=== PATIENT | male | born 1945 | race Caucasian/White ===

== ENCOUNTER 2018-01-06 09:28 | Emergency (ER) | payer SELFPAY ==
[2018-01-06 09:34] VITALS: BMI 23.5
[2018-01-06 10:36] LABS: BASO % 0.4 % (0-2.0); EOS % 1.9 % (0-4.5); HEMATOCRIT 44.4 % (35.4-49); HEMOGLOBIN 14.9 GM/dL (11.7-16.9); LYMPH % 22.3 % (8-40); MCHC 33.4 g/dl (32.0-35.9); MEAN CELL VOLUME 95.7 fl (80-96); MEAN PLT VOLUME 9.2 fl (7.5-11.1); MONO % 7.5 % (3.8-10.2); NEUT % 67.9 % (42.8-82.8); PLATELET COUNT 191 K/MM3 (134-434); RBC 4.64 M/mm3 (4.00-5.60); WHITE BLOOD COUNT 6.8 K/mm3 (4.0-10.0)
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
--- NOTE | 2018-01-06 10:51 | PDOC ---
History of Present Illness - General Chief Complaint: Rash Stated Complaint: RASH Time Seen by Provider: 01/06/18 09:36 History Source: Patient Exam Limitations: No Limitations - History of Present Illness Initial Comments: 01/06/18 11:09 72m with no known pmh (never seen a doctor in his life) presents with pruritic rash over right leg, chest, neck and back for the past 5 days. Also notes a increase in swelling in his left leg which has been swollen for the past 6 months or so. 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 He tried applying some lotion to the itchy area with no relief. Past History - Past Medical History Allergies/Adverse Reactions: Allergies Allergy/AdvReac Type Severity Reaction Status Date / Time No Known Allergies Allergy Verified 01/06/18 09:33 Home Medications: Ambulatory Orders NK [No Known Home Medication] 01/06/18 COPD: No - Suicide/Smoking/Psychosocial Hx Smoking History: Never smoked Review of Systems - Review of Systems Able to Perform ROS?: Yes Is the patient limited Wolof proficient: No Constitutional: No: Symptoms Reported HEENTM: No: Symptoms Reported Respiratory: No: Symptoms reported Cardiac (ROS): No: Symptoms Reported ABD/GI: No: Symptoms Reported : No: Symptoms Reported Musculoskeletal: No: Symptoms Reported Integumentary: Yes: See HPI Neurological: No: Symptoms reported All Other Systems: Reviewed and Negative *Physical Exam - Vital Signs Last Vital Signs Temp Pulse Resp BP Pulse Ox 98 F 66 18 181/74 H 97 01/06/18 09:30 01/06/18 09:30 01/06/18 09:30 01/06/18 09:30 01/06/18 09:30 - Physical Exam General Appearance: Yes: Nourished, Appropriately Dressed. No: Apparent Distress HEENT: positive: EOMI, CHRISSY, Normal ENT Inspection Respiratory/Chest: positive: Lungs Clear, Normal Breath Sounds, Respiratory Distress. negative: Chest Tender, Accessory Muscle Use Cardiovascular: positive: Regular Rhythm, Regular Rate, S1, S2 Gastrointestinal/Abdominal: positive: Normal Bowel Sounds, Flat, Soft. negative : Tender Extremity: positive: Swelling (left), Calf Tenderness (left) Integumentary: positive: Other (petechia-like rash over right leg, macular, erythmatous and prutitic rash over chest, back and neck. ) Neurologic: positive: Fully Oriented, Alert, Normal Mood/Affect, Normal Response ED Treatment Course - LABORATORY CBC & Chemistry Diagram: 01/06/18 10:30 01/06/18 10:30 - ADDITIONAL ORDERS Additional order review: 01/06/18 10:30 RBC 4.64 MCV 95.7 MCHC 33.4 RDW 13.0 MPV 9.2 Neutrophils % 67.9 Lymphocytes % 22.3 Monocytes % 7.5 Eosinophils % 1.9 Basophils % 0.4 - RADIOLOGY Radiology Studies Ordered: Category Date Time Status DUPLEX VASCUL US-1 LEG [US] Stat Ultrasound 01/06/18 10:02 Ordered - Medications Given in the ED: ED Medications Discontinued Medications Generic Name Dose Route Start Last Admin Trade Name Freq PRN Reason Stop Dose Admin Diphenhydramine HCl 25 mg 01/06/18 10:03 01/06/18 10:35 Benadryl Injection - IVPUSH 01/06/18 10:04 25 mg ONCE ONE Administration Medical Decision Making - Medical Decision Making 01/06/18 11:19 Rash looks like a contact dermatitis/eczema type possibly due to nature of employment. Will treat with Benadryl and recommend avoidance of exposure. Will evaluate swelling of the left leg with Duplex as he is tender. 01/06/18 12:25 Duplex negative for DVT. Appointment made for PCP follow up in 3 days. ok to D/C *DC/Admit/Observation/Transfer Diagnosis at time of Disposition: Eczema - Discharge Dispostion Disposition: HOME Decision to Admit order: No - Referrals Referrals: Racquel Barrera MD [Provisional Medical Staff] - - Patient Instructions Printed Discharge Instructions: Eczema Additional Instructions: Follow up with your appointment with Dr. Barrera on 01/09/2018 at 9am at [address], [place]. Use Benadryl for rash-related itch. Come back to the ER for any new, worsening or concerning symptom. - Post Discharge Activity
[2018-01-06 11:11] LABS: ALK PHOS 67 U/L (45-117); ANION GAP 9 MMOL/L (8-16); BILIRUBIN,TOTAL 0.2 mg/dL (0.2-1); BLOOD UREA NITROGEN 24 mg/dL (7-18); CALCIUM 9.2 mg/dL (8.5-10.1); CHLORIDE 106 mmol/L (98-107); CO2 25 mmol/L (21-32); CREATININE 0.8 mg/dL (0.55-1.3); GLUCOSE,RANDOM 168 mg/dL (74-106); POTASSIUM 4.3 mmol/L (3.5-5.1); SGOT/AST 17 U/L (15-37); SGPT/ALT 18 U/L (13-61); SODIUM 139 mmol/L (136-145); TOT PROT 7.3 g/dl (6.4-8.2)
[2018-01-06 12:32] VITALS: BP 163/74; PULSE 63; TEMP 97.6
== END 2018-01-06 12:58 | disposition home or self-care (01) ==
LOC: JER 09:28
PROC: 3E033GC Introduction of Other Therapeutic Substance into Peripheral Vein, Percutaneous Approach (ICD-10-PCS; principal; 2018-01-06)
DX: L30.9 Dermatitis, unspecified (principal)
CPT/HCPCS: 36415; 80053; 85025; 93971-TC; 96374; 99282-25

== ENCOUNTER 2019-04-11 13:59 | Inpatient (IN) | payer BC, OTHER ==
--- NOTE | 2019-04-11 14:10 | PDOC ---
Rapid Medical Evaluation Time Seen by Provider: 04/11/19 14:04 Medical Evaluation: Allergies Allergy/AdvReac Type Severity Reaction Status Date / Time No Known Allergies Allergy Verified 06/18/18 12:26 04/11/19 14:04 CC: sent by Benson Basurto for admission for cellulitis; requesting Dr. Chong evaluation. PE: RLE erythematous with venous stasis changes. Orders: labs, urine, CXR, EKG Patient will proceed to ED for continued evaluation. Discharge Disposition - Diagnosis Leg wound, right - Referrals - Patient Instructions - Post Discharge Activity
[2019-04-11] MEDS: VANCOMYCIN 1 GM in D5W (PRE-DOCKED) 1,000 MG/250 ML IVPB ONE ×2 (17:15→17:41)
[2019-04-11 17:34] LABS: BASO % 0.4 % (0-2.0); EOS % 5.4 % (0-4.5); HEMATOCRIT 42.6 % (35.4-49); HEMOGLOBIN 14.2 GM/dL (11.7-16.9); LYMPH % 27.4 % (8-40); MCHC 33.2 g/dl (32.0-35.9); MEAN CELL VOLUME 93.5 fl (80-96); MEAN PLT VOLUME 8.7 fl (7.5-11.1); MONO % 9.4 % (3.8-10.2); NEUT % 57.4 % (42.8-82.8); PLATELET COUNT 226 K/MM3 (134-434); RBC 4.56 M/mm3 (4.00-5.60); RDW 13.3 % (11.9-15.9); WHITE BLOOD COUNT 7.1 K/mm3 (4.0-10.0)
[2019-04-11] MEDS ORDERED: CEFAZOLIN 1 GM/D5W 1 GM/50 ML BAG IVPB ONE (17:39)
[2019-04-11] MEDS ORDERED: CEFAZOLIN 1 GM/D5W 1 GM/50 ML BAG ONE (17:46)
--- NOTE | 2019-04-11 17:50 | PDOC ---
History of Present Illness - General History Source: Patient Exam Limitations: No Limitations <Christine Castillo - Last Filed: 04/11/19 17:42> <Kia Huang - Last Filed: 04/15/19 12:34> - General Chief Complaint: Wound Stated Complaint: WOUNDS TO LEGS BILAT Time Seen by Provider: 04/11/19 14:04 Past History - Past Medical History Anemia: No Asthma: No Cancer: No Cardiac Disorders: No CVA: No COPD: No CHF: No Dementia: No Diabetes: Yes GI Disorders: No Disorders: No HTN: Yes Hypercholesterolemia: Yes Liver Disease: No Seizures: No Thyroid Disease: No - Psycho Social/Smoking Cessation Hx Smoking History: Never smoked Have you smoked in the past 12 months: No Information on smoking cessation initiated: No Hx Alcohol Use: No Drug/Substance Use Hx: No <JonathanChristine - Last Filed: 04/11/19 17:42> <Kia Huang - Last Filed: 04/15/19 12:34> - Past Medical History Allergies/Adverse Reactions: Allergies Allergy/AdvReac Type Severity Reaction Status Date / Time No Known Allergies Allergy Verified 04/11/19 14:16 Home Medications: Ambulatory Orders Lisinopril [Zestril] 5 mg PO DAILY 06/18/18 metFORMIN HCL [Metformin HCl ER] 500 mg PO DAILY 06/18/18 *Physical Exam - Vital Signs Last Vital Signs Temp Pulse Resp BP Pulse Ox 97.8 F 66 16 130/70 100 04/11/19 14:14 04/11/19 14:14 04/11/19 14:14 04/11/19 14:14 04/11/19 14:14 - Physical Exam Extremity: positive: Other (+swelling of BLE (L>R, swelling is chronic), + redness along BLE, +skin dryness, no warmth noted, difficult to feel pulses due to edema of legs, no drainage, no abscess, no foul odor) Integumentary: negative: Ecchymosis, Bruising Neurologic: positive: Alert <JonathanNicoleChristine - Last Filed: 04/11/19 17:42> - Vital Signs Last Vital Signs Temp Pulse Resp BP Pulse Ox 97.9 F 75 18 98/67 97 04/13/19 09:00 04/13/19 09:00 04/13/19 09:00 04/13/19 09:00 04/13/19 09:00 <Kia Huang - Last Filed: 04/15/19 12:34> ED Treatment Course - LABORATORY CBC & Chemistry Diagram: 04/11/19 17:00 04/11/19 17:00 - ADDITIONAL ORDERS Additional order review: 04/11/19 17:00 RBC 4.56 MCV 93.5 MCHC 33.2 RDW 13.3 MPV 8.7 Neutrophils % 57.4 Lymphocytes % 27.4 D Monocytes % 9.4 Eosinophils % 5.4 H D Basophils % 0.4 - Medications Given in the ED: ED Medications Discontinued Medications Generic Name Dose Route Start Last Admin Trade Name Freq PRN Reason Stop Dose Admin Vancomycin HCl 1,000 mg 04/11/19 17:05 04/11/19 17:41 Vancomycin (Pre-Docked) IVPB 04/11/19 17:06 Not Given ONCE ONE Protocol <Christine Castillo - Last Filed: 04/11/19 17:42> - LABORATORY CBC & Chemistry Diagram: 04/12/19 07:30 04/12/19 07:30 - ADDITIONAL ORDERS Additional order review: 04/11/19 17:00 RBC 4.56 MCV 93.5 MCHC 33.2 RDW 13.3 MPV 8.7 Neutrophils % 57.4 Lymphocytes % 27.4 D Monocytes % 9.4 Eosinophils % 5.4 H D Basophils % 0.4 - Medications Given in the ED: ED Medications Discontinued Medications Generic Name Dose Route Start Last Admin Trade Name Freq PRN Reason Stop Dose Admin Aspirin 81 mg 04/12/19 10:00 04/13/19 09:41 Ecotrin - PO 81 mg DAILY BRITTANY Administration Chlorthalidone 50 mg 04/12/19 10:00 04/12/19 14:55 Hygroton - PO 50 mg DAILY BRITTANY Administration Chlorthalidone 50 mg 04/13/19 10:00 04/13/19 09:41 Hygroton - PO 50 mg DAILY BRITTANY Administration Cefazolin Sodium 1 gm in 50 mls @ 100 mls/hr 04/11/19 17:39 04/11/19 17:42 Ancef 1 Gm Premixed Ivpb - IVPB 04/11/19 18:08 100 mls/hr ONCE ONE Administration Sodium Chloride 1,000 mls @ 42 mls/hr 04/11/19 19:45 04/11/19 20:41 Normal Saline - IV 42 mls/hr ASDIR BRITTANY Administration Cefazolin Sodium 1 gm/ 50 mls @ 100 mls/hr 04/12/19 13:00 04/13/19 09:41 Dextrose IVPB 100 mls/hr Q8H-IV BRITTANY Administration Lactic Acid 1 applic 04/12/19 10:00 04/13/19 09:42 Lac-Hydrin 12 TP 1 applic DAILY BRITTANY Administration Lisinopril 5 mg 04/12/19 10:00 04/13/19 09:41 Prinivil PO 5 mg DAILY BRITTANY Administration Mupirocin 1 applic 04/11/19 22:00 04/11/19 22:41 Bactroban 2% Ointment - TP 1 applic BID BRITTANY Administration Rosuvastatin Calcium 10 mg 04/11/19 22:00 04/12/19 21:11 Crestor - PO 10 mg HS BRITTANY Administration Vancomycin HCl 1,000 mg 04/11/19 17:05 04/11/19 17:41 Vancomycin (Pre-Docked) IVPB 04/11/19 17:06 Not Given ONCE ONE Protocol <Kia Huang - Last Filed: 04/15/19 12:34> Medical Decision Making - Medical Decision Making 79-year-old male history of hypertension, diabetes, chronic lymphedema (follows with Dr. Chong) was sent by his PCP Dr. Lee for admission for cellulitis of bilateral legs. Patient denies fevers, shortness of breath, chest pain, other complaints Discussed with Dr. Chong who will see patient in the hospital Also discussed with JEN Norris who will see patient in house Discussed with Dr. Benson Basurto; agrees with dose of IV ancef for now 04/11/19 17:51 <Christine Castillo - Last Filed: 04/11/19 17:42> - Medical Decision Making reviewed and agree with PA note, HPI and PE, workup and disposition. admitting for cellulitis, by PMD 04/15/19 12:34 <Kia Huang - Last Filed: 04/15/19 12:34> Discharge - Discharge Information Problems reviewed: Yes - Admission Yes <Christine Castillo - Last Filed: 04/11/19 17:42> <Kia Huang - Last Filed: 04/15/19 12:34> - Discharge Information Clinical Impression/Diagnosis: Cellulitis Qualifiers: Site of cellulitis of extremity: lower extremity Laterality: unspecified laterality Condition: Stable Disposition: HOME
[2019-04-11 17:58] LABS: ALBUMIN 3.8 g/dl (3.4-5.0); BILIRUBIN,TOTAL 0.1 mg/dL (0.2-1); CREATININE 0.9 mg/dL (0.55-1.3); POTASSIUM 4.1 mmol/L (3.5-5.1); TOT PROT 7.6 g/dl (6.4-8.2)
--- NOTE | 2019-04-11 19:42 | HP ---
Admitting History and Physical - Admission Chief Complaint: pt c/o wortening leg swelling and redness increasing in legs over last 2 wks. vasc machine arrived today at his home duplex legs nl. pt h/ o lyphodema legs History Source: Patient Limitations to Obtaining History: No Limitations, Language Barrier - Past Medical History Cardiovascular: Yes: HTN, Hyperlipdemia Endocrine: Yes: Diabetes Insipidus Dermatology: Yes: Other (? stasis rash vs cellulitis) - Smoking History Smoking history: Never smoked Have you smoked in the past 12 months: No - Alcohol/Substance Use Hx Alcohol Use: No Home Medications - Allergies Allergies/Adverse Reactions: Allergies Allergy/AdvReac Type Severity Reaction Status Date / Time No Known Allergies Allergy Verified 04/11/19 14:16 - Home Medications Home Medications: Ambulatory Orders Lisinopril [Zestril] 5 mg PO DAILY 06/18/18 metFORMIN HCL [Metformin HCl ER] 500 mg PO DAILY 06/18/18 Family Medical History Family History: Unremarkable Review of Systems - Review of Systems Constitutional: reports: No Symptoms Eyes: reports: No Symptoms HENT: reports: No Symptoms Neck: reports: No Symptoms Cardiovascular: reports: No Symptoms Respiratory: reports: No Symptoms Gastrointestinal: reports: No Symptoms Genitourinary: reports: No Symptoms Breasts: reports: No Symptoms Reported Musculoskeletal: reports: No Symptoms Integumentary: reports: Erythema Neurological: reports: No Symptoms Endocrine: reports: No Symptoms Hematology/Lymphatic: reports: No Symptoms Psychiatric: reports: No Symptoms Physical Examination Vital Signs: Vital Signs Temperature 97.8 F 04/11/19 14:14 Pulse Rate 66 04/11/19 14:14 Respiratory Rate 16 04/11/19 14:14 Blood Pressure 130/70 04/11/19 14:14 O2 Sat by Pulse Oximetry (%) 100 04/11/19 14:14 Constitutional: Yes: Well Nourished Eyes: Yes: WNL HENT: Yes: WNL Neck: Yes: WNL Cardiovascular: Yes: WNL Respiratory: Yes: WNL Gastrointestinal: Yes: WNL Labs: CBC, BMP 04/11/19 17:00 04/11/19 17:00 Problem List - Problems (1) Diabetes 1.5, managed as type 2 Code(s): E13.9 - OTHER SPECIFIED DIABETES MELLITUS WITHOUT COMPLICATIONS (2) Hypertension Code(s): I10 - ESSENTIAL (PRIMARY) HYPERTENSION Assessment/Plan iv antibiotics vasdc id consults cont all meds there dvt prophylaxisis
[2019-04-11] MEDS ORDERED: SODIUM CHLORIDE 1,000 ML IV SCH (19:45)
--- NOTE | 2019-04-11 21:03 | PDOC ---
*Physical Exam - Vital Signs Last Vital Signs Temp Pulse Resp BP Pulse Ox 97.8 F 66 16 130/70 100 04/11/19 14:14 04/11/19 14:14 04/11/19 14:14 04/11/19 14:14 04/11/19 14:14 ED Treatment Course - LABORATORY CBC & Chemistry Diagram: 04/11/19 17:00 04/11/19 17:00 - ADDITIONAL ORDERS Additional order review: Laboratory Results 04/11/19 17:00 Sodium 136 Potassium 4.1 Chloride 102 Carbon Dioxide 29 Anion Gap 5 L BUN 28.0 H Creatinine 0.9 Est GFR (CKD-EPI)AfAm 93.16 Est GFR (CKD-EPI)NonAf 80.38 Random Glucose 107 H Calcium 9.0 Total Bilirubin 0.1 L AST 18 ALT 23 Alkaline Phosphatase 53 Total Protein 7.6 Albumin 3.8 04/11/19 17:00 RBC 4.56 MCV 93.5 MCHC 33.2 RDW 13.3 MPV 8.7 Neutrophils % 57.4 Lymphocytes % 27.4 D Monocytes % 9.4 Eosinophils % 5.4 H D Basophils % 0.4 - Medications Given in the ED: ED Medications Discontinued Medications Generic Name Dose Route Start Last Admin Trade Name Freq PRN Reason Stop Dose Admin Cefazolin Sodium 1 gm in 50 mls @ 100 mls/hr 04/11/19 17:39 04/11/19 17:42 Ancef 1 Gm Premixed Ivpb - IVPB 04/11/19 18:08 100 mls/hr ONCE ONE Administration Vancomycin HCl 1,000 mg 04/11/19 17:05 04/11/19 17:41 Vancomycin (Pre-Docked) IVPB 04/11/19 17:06 Not Given ONCE ONE Protocol Medical Decision Making - Medical Decision Making 04/11/19 21:03 Case reviewed, was available for consultation during clinical course Discharge - Discharge Information Problems reviewed: Yes Clinical Impression/Diagnosis: Cellulitis Qualifiers: Site of cellulitis of extremity: lower extremity Laterality: unspecified laterality Condition: Stable - Follow up/Referral - Patient Discharge Instructions - Post Discharge Activity
[2019-04-11] MEDS ORDERED: MUPIROCIN 2% TOPICAL OINTMENT 22 GM TUBE TP SCH (22:00)
[2019-04-11] MEDS: ROSUVASTATIN CA 10 MG TABLET (FP) PO SCH (22:41)
[2019-04-12 04:34] VITALS: BMI 20.4
--- NOTE | 2019-04-12 08:43 | CONSULT ---
- Consultation REQUESTING PROVIDER: Vascular Surgery / Wound Care CONSULT REQUEST: We have been asked to surgically evaluate this patient for bilat LE cellulitis PCP: Benson Basurto HPI: Called to eval 79 yo male with PMHx as noted below. Admitted w/ LE cellulitis. PMHx: HTN, HLD, DI, Chronic venous stasis dermatitis PSHx: Denies Home Meds Lisinopril [Zestril] 5 mg PO DAILY 06/18/18 metFORMIN HCL [Metformin HCl ER] 500 mg PO DAILY 06/18/18 Allergies: NKDA REVIEW OF SYSTEMS: 12 points systems reviewed and considered negative except for what's contained in his HPI. PE: GENERAL: A7Ox3. NAD HEAD: Normal with no signs of trauma. EYES: PERRL, sclera anicteric, conjunctiva clear. LUNGS: CTA bilat HEART: RRR UE: 2+ pulses, warm, well-perfused. No cyanosis. Cap refill <2 seconds. No peripheral edema. LE: bilat LE chronic venous stasis dermatitis. 2+ pulses, warm, well-perfused. No calf tenderness. NEUROLOGICAL: Normal speech, gait not observed. PSYCH: Cooperative. Good eye contact. Appropriate mood and affect. Last Vital Signs Temp Pulse Resp BP Pulse Ox 97.5 F L 64 20 127/64 100 04/12/19 06:51 04/12/19 06:51 04/12/19 06:51 04/12/19 06:51 04/12/19 01:00 CBC, BMP 04/11/19 17:00 04/11/19 17:00 Problem List - Problems (1) Venous stasis dermatitis of both lower extremities Assessment/Plan: -Reposition every two hours while in bed -Ensure adequate hydration/nutrition, supplementation per primary team -Ensure off-loading to all bony areas (heels, ankles, hips and tailbone) with Allevyn/Optifoam -Elevate the lower extremity above the level of the heart at all times while at rest -Bilateral light compression with javed wraps (wrap from metacarpal heads to below knee) -Domeboro soaks QD (astringent for pruritus) -Warm compress to soften tissue, warm water/soap and gentle mechanical debridement with brush -Apply Lac hydrin daily (for dry scaly skin) -No surgical intervention. -Above plan discussed with Dr. Chong and agrees. -Tight glycemic control On behalf of Dr. Chong thank you for the opportunity to participate in your patient's care Code(s): I87.2 - VENOUS INSUFFICIENCY (CHRONIC) (PERIPHERAL) (2) Diabetes 1.5, managed as type 2 Code(s): E13.9 - OTHER SPECIFIED DIABETES MELLITUS WITHOUT COMPLICATIONS Visit type - Case Type Case Type: ED Admission - Emergency Emergency Visit: Yes ED Registration Date: 04/11/19 Care time: The patient presented to the Emergency Department on the above date and was hospitalized for further evaluation of their emergent condition. - New patient This patient is new to me today: Yes Date on this admission: 04/12/19
[2019-04-12 09:07] LABS: HEMATOCRIT 39.2 % (35.4-49); HEMOGLOBIN 13.2 GM/dL (11.7-16.9); MCH 31.1 pg (25.7-33.7); MCHC 33.8 g/dl (32.0-35.9); MEAN CELL VOLUME 92.1 fl (80-96); MEAN PLT VOLUME 8.7 fl (7.5-11.1); PLATELET COUNT 199 K/MM3 (134-434); RBC 4.26 M/mm3 (4.00-5.60); RDW 12.9 % (11.9-15.9)
[2019-04-12 09:44] LABS: ALBUMIN 3.2 g/dl (3.4-5.0); BILIRUBIN,TOTAL 0.3 mg/dL (0.2-1); BLOOD UREA NITROGEN 21.5 mg/dL (7-18); CALCIUM 8.9 mg/dL (8.5-10.1); CREATININE 0.7 mg/dL (0.55-1.3); POTASSIUM 3.7 mmol/L (3.5-5.1); TOT PROT 6.6 g/dl (6.4-8.2)
[2019-04-12] MEDS ORDERED: CHLORTHALIDONE 50 MG TABLET PO SCH (10:00)
[2019-04-12] MEDS ORDERED: PT OWN MED DRAWER 7, Y5N ONE ×4 (10:01→17:48)
[2019-04-12] MEDS: ASPIRIN COATED 81 MG TABLET.EC PO SCH (10:04)
[2019-04-12] MEDS: LISINOPRIL 5 MG TABLET (FP) PO SCH (10:04)
[2019-04-12] MEDS: AMMONIUM LACTATE 12% LOTION 225 GM BOTTLE TP SCH (11:32)
--- NOTE | 2019-04-12 11:47 | EKG ---
Test Reason : Blood Pressure : / mmHG Vent. Rate : 066 BPM Atrial Rate : 066 BPM P-R Int : 158 ms QRS Dur : 088 ms QT Int : 422 ms P-R-T Axes : 020 011 030 degrees QTc Int : 442 ms NORMAL SINUS RHYTHM CANNOT RULE OUT POSTERIOR INFARCT , AGE UNDETERMINED CLINICAL CORRELATION IS RECOMMENDED NONSPECIFIC ST ABNORMALITY ABNORMAL ECG NO PREVIOUS ECGS AVAILABLE Confirmed by TERRA WALKER MD ([id number]) on 04/12/2019 11:46:57 AM Referred By: Confirmed By:TERRA WALKER MD
--- NOTE | 2019-04-12 11:50 | CON.ID ---
Consult Consult Specialty:: infectious diseases Referred by:: Reason for Consultation:: b/l cellulitis of the legs - History of Present Illness Chief Complaint: worsening redness and swelling of the legs History of Present Illness: 79-year-old male history of hypertension, diabetes, chronic lymphedema came for increased cellulitis of bilateral legs. Patient denies fevers, shortness of breath, chest pain, other complaints says in last few days the swelling and the redness has increased.also lot of flakes - History Source History Provided By: Patient Limitations to Obtaining History: No Limitations - Past Medical History Cardio/Vascular: Yes: HTN, Hyperlipdemia Endocrine: Yes: Diabetes Insipidus Dermatology: Yes: Other (? stasis rash vs cellulitis) - Alcohol/Substance Use Hx Alcohol Use: No - Smoking History Smoking history: Never smoked Have you smoked in the past 12 months: No Home Medications - Allergies Allergies/Adverse Reactions: Allergies Allergy/AdvReac Type Severity Reaction Status Date / Time No Known Allergies Allergy Verified 04/11/19 14:16 - Home Medications Home Medications: Ambulatory Orders Lisinopril [Zestril] 5 mg PO DAILY 06/18/18 metFORMIN HCL [Metformin HCl ER] 500 mg PO DAILY 06/18/18 Review of Systems - Review of Systems Constitutional: reports: No Symptoms Eyes: reports: No Symptoms HENT: reports: No Symptoms Neck: reports: No Symptoms Cardiovascular: reports: No Symptoms Respiratory: reports: No Symptoms Gastrointestinal: reports: No Symptoms Musculoskeletal: reports: Other Integumentary: reports: Erythema Neurological: reports: No Symptoms Endocrine: reports: No Symptoms Hematology/Lymphatic: reports: No Symptoms Psychiatric: reports: No Symptoms Physical Exam Vital Signs: Vital Signs Temperature 97.5 F L 04/12/19 06:51 Pulse Rate 64 04/12/19 06:51 Respiratory Rate 20 04/12/19 06:51 Blood Pressure 127/64 04/12/19 06:51 O2 Sat by Pulse Oximetry (%) 100 04/12/19 01:00 Constitutional: Yes: Well Nourished, Calm, Mild Distress Eyes: Yes: Conjunctiva Clear HENT: Yes: Atraumatic, Normocephalic Neck: Yes: Supple, Trachea Midline Cardiovascular: Yes: S1, S2 Respiratory: Yes: Regular, CTA Bilaterally Gastrointestinal: Yes: Normal Bowel Sounds, Soft Musculoskeletal: Yes: WNL Extremities: Yes: Erythema, Other Edema: LLE: 1+, RLE: 1+ Integumentary: Yes: Erythema, Other Wound/Incision: Yes: Dressing Dry and Intact, Dressing Removed Neurological: Yes: Alert, Oriented Psychiatric: Yes: Alert, Oriented Labs: CBC, BMP 04/12/19 07:30 04/12/19 07:30 Imaging - Results Ultrasound: Report Reviewed, Image Reviewed Assessment/Plan Problem List - Problems (1) Diabetes 1.5, managed as type 2 Code(s): E13.9 - OTHER SPECIFIED DIABETES MELLITUS WITHOUT COMPLICATIONS (2) Hypertension Code(s): I10 - ESSENTIAL (PRIMARY) HYPERTENSION cellulitis of the legs vascular insufficency plan continue abx for now vascular elevation of the legs care of the legs rest as per the team
[2019-04-12] MEDS ORDERED: CEFTRIAXONE 1 GM in DEXTROSE 5%-WATER - 50 ML IVPB SCH (13:00)
--- NOTE | 2019-04-12 13:27 | PN ---
Progress Note, Physician Chief Complaint: feels better legs better css - Current Medication List Current Medications: Active Medications Aspirin (Ecotrin -) 81 mg PO DAILY [facility] Last Admin: 04/12/19 10:04 Dose: 81 mg Chlorthalidone (Hygroton -) 50 mg PO DAILY [facility] Sodium Chloride (Normal Saline -) 1,000 mls @ 42 mls/hr IV ASDIR [facility] Last Admin: 04/11/19 20:41 Dose: 42 mls/hr Cefazolin Sodium 1 gm/ (Dextrose) 50 mls @ 100 mls/hr IVPB Q8H-IV [facility] Lactic Acid (Lac-Hydrin 12) 1 applic TP DAILY [facility] Last Admin: 04/12/19 11:32 Dose: 1 applic Lisinopril (Prinivil) 5 mg PO DAILY [facility] Last Admin: 04/12/19 10:04 Dose: 5 mg Rosuvastatin Calcium (Crestor -) 10 mg PO HS [facility] Last Admin: 04/11/19 22:41 Dose: 10 mg - Objective Vital Signs: Vital Signs Temperature 97.5 F L 04/12/19 06:51 Pulse Rate 64 04/12/19 06:51 Respiratory Rate 04/12/19 06:51 Blood Pressure 127/64 04/12/19 06:51 O2 Sat by Pulse Oximetry (%) 100 04/12/19 01:00 Constitutional: Yes: Well Nourished Eyes: Yes: WNL HENT: Yes: WNL Neck: Yes: WNL, Tenderness Respiratory: Yes: WNL Gastrointestinal: Yes: WNL ...Rectal Exam: Yes: Deferred Genitourinary: Yes: WNL Breast(s): Yes: WNL, Gynecomastia Edema: Yes Edema: LLE: 2+, RLE: 2+ Peripheral Pulses WNL: Yes Peripheral Pulses: Left Radial: 4+, Right Radial: 4+, Left Doralis Pedis: 4+, Right Dorsalis Pedis: 4+, Left Femoral: 1+, Right Femoral: 1+ Integumentary: Yes: WNL Wound/Incision: Yes: Clean/Dry Neurological: Yes: WNL Labs: CBC, BMP 04/12/19 07:30 04/12/19 07:30 Problem List - Problems (1) Diabetes 1.5, 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
[2019-04-12] MEDS ORDERED: ceFAZolin SODIUM 1 GM VIAL ONE (14:51)
[2019-04-12] MEDS ORDERED: DEXTROSE 5%-WATER - 50 ML IVPB ONE (14:52)
[2019-04-12] MEDS: CEFAZOLIN 1 GM in DEXTROSE 5%-WATER - 50 ML IVPB SCH ×2 (14:56→19:14)
[2019-04-12] MEDS: ROSUVASTATIN CA 10 MG TABLET (FP) PO SCH (21:11)
[2019-04-13] MEDS ORDERED: DEXTROSE 5%-WATER - 50 ML IVPB ONE ×2 (01:13→09:36)
[2019-04-13] MEDS ORDERED: ceFAZolin SODIUM 1 GM VIAL ONE ×2 (01:13→09:36)
[2019-04-13] MEDS: CEFAZOLIN 1 GM in DEXTROSE 5%-WATER - 50 ML IVPB SCH ×2 (01:54→09:41)
[2019-04-13] MEDS ORDERED: PT OWN MED DRAWER 7, Y5N ONE (09:36)
[2019-04-13 09:41] VITALS: BP 98/67; PULSE 75; TEMP 97.9
[2019-04-13] MEDS: LISINOPRIL 5 MG TABLET (FP) PO SCH (09:41)
[2019-04-13] MEDS: ASPIRIN COATED 81 MG TABLET.EC PO SCH (09:41)
[2019-04-13] MEDS: AMMONIUM LACTATE 12% LOTION 225 GM BOTTLE TP SCH (09:42)
[2019-04-13] MEDS ORDERED: CHLORTHALIDONE 25 MG TABLET PO SCH (10:00)
--- NOTE | 2019-04-13 12:11 | DS ---
Physical Examination Vital Signs: Vital Signs Temperature 97.9 F 04/13/19 09:00 Pulse Rate 75 04/13/19 09:00 Respiratory Rate 18 04/13/19 09:00 Blood Pressure 98/67 04/13/19 09:00 O2 Sat by Pulse Oximetry (%) 97 04/13/19 09:00 Constitutional: Yes: Well Nourished Eyes: Yes: WNL, Occular Prosthesis Neck: Yes: WNL Cardiovascular: Yes: WNL Respiratory: Yes: WNL Gastrointestinal: Yes: WNL ...Rectal Exam: Yes: WNL, Deferred Renal/: Yes: WNL Breast(s): Yes: WNL Musculoskeletal: Yes: WNL Extremities: Yes: WNL Edema: Yes Edema: LUE: Trace, LLE: 2+, RLE: 2+ Peripheral Pulses WNL: Yes Integumentary: Yes: WNL Wound/Incision: Yes: Clean/Dry Neurological: Yes: WNL ...Motor Strength: WNL Psychiatric: Yes: WNL Labs: CBC, BMP 04/12/19 07:30 04/12/19 07:30 Discharge Summary Problems reviewed: Yes Reason For Visit: CELLULITIS Current Active Problems Cellulitis (Acute) Diabetes 1.5, managed as type 2 (Acute) Hypertension (Acute) Venous stasis dermatitis of both lower extremities (Acute) Condition: Stable - Instructions Diet, Activity, Other Instructions: cont lotion tx at home byself cont all meds as is at home appt 500 pm monday with me send pt homee now Disposition: HOME - Home Medications Comprehensive Discharge Medication List: Ambulatory Orders Lisinopril [Zestril] 5 mg PO DAILY 06/18/18 metFORMIN HCL [Metformin HCl ER] 500 mg PO DAILY 06/18/18
== END 2019-04-13 13:19 | disposition home or self-care (01) | DRG 603 ==
LOC: JER 13:59 → JERBED 17:53 → J8W 04-12 01:25
PROVIDERS: ADMIT Family Medicine; ATTEND Family Medicine
DX: L03.115 Cellulitis of right lower limb (principal); E11.51 Type 2 diabetes mellitus with diabetic peripheral angiopathy without gangrene; L03.116 Cellulitis of left lower limb; I10 Essential (primary) hypertension
CPT/HCPCS: 36415; 71046-TC-FY; 80053; 82962; 85025; 85027; 93005; 93010; 93971-TC; 97116-GP; 97161-GP; 99285-25; J7030

== ENCOUNTER 2024-04-27 14:00 | Emergency (ER) | payer OTHER ==
[2024-04-27 14:14] VITALS: RESP 16; BMI 29.8
[2024-04-27] MEDS ORDERED: ACETAMINOPHEN INJECTION 100 ML ONE (16:07)
[2024-04-27 16:08] LABS: BASO % 0.4 % (0-2.0); EOS % 0.2 % (0-4.5); HEMATOCRIT 36.4 % (35.4-49); HEMOGLOBIN 12.4 GM/dL (11.7-16.9); LYMPH % 17.7 % (8-40); MCH 31.6 pg (25.7-33.7); MCHC 34.1 g/dl (32.0-35.9); MEAN CELL VOLUME 92.6 fl (80-96); MEAN PLT VOLUME 8.2 fl (7.5-11.1); MONO % 12.4 % (3.8-10.2); NEUT % 69.3 % (42.8-82.8); PLATELET COUNT 163 10^3/uL (134-434); RBC 3.93 M/mm3 (4.00-5.60); RDW 12.8 % (11.9-15.9); WHITE BLOOD COUNT 5.7 K/mm3 (4.0-10.0)
[2024-04-27] MEDS: SODIUM CHLORIDE 0.9% 500 ML INFUS.BAG IV ONE (16:14)
[2024-04-27] MEDS: ACETAMINOPHEN 1000 MG/100 ML BAG IVPB ONE (16:15)
[2024-04-27 16:34] LABS: POTASSIUM 4.1 mmol/L (3.5-5.1)
[2024-04-27 16:35] LABS: CALCIUM 8.6 mg/dL (8.5-10.1)
[2024-04-27 16:36] LABS: ALBUMIN 3.5 g/dl (3.4-5.0); BLOOD UREA NITROGEN 14.9 mg/dL (7-18); MAGNESIUM 1.6 mg/dL (1.8-2.4)
[2024-04-27 16:41] LABS: BILIRUBIN,TOTAL 0.4 mg/dL (0.2-1); TOT PROT 6.3 g/dl (6.4-8.2)
[2024-04-27 17:22] LABS: HIV INTERPRETATION NEGATIVE (NEGATIVE)
[2024-04-27 17:50] VITALS: BP 123/54; PULSE 70; TEMP 99
== END 2024-04-27 18:44 | disposition home or self-care (01) ==
LOC: JER 14:00
PROC: 3E033NZ Introduction of Analgesics, Hypnotics, Sedatives into Peripheral Vein, Percutaneous Approach (ICD-10-PCS; principal; 2024-04-27)
DX: J10.1 Influenza due to other identified influenza virus with other respiratory manifestations (principal); R05.9 Cough, unspecified; M79.10 Myalgia, unspecified site; R07.9 Chest pain, unspecified; R63.0 Anorexia
CPT/HCPCS: 0241U-QW; 36415; 71045-TC-FY; 80053; 83735; 84484; 85025; 86803; 87389; 93005; 93010; 99285-25; J0131

== ENCOUNTER 2024-07-29 22:24 | Observation (INO) | payer OTHER ==
[2024-07-29] MEDS ORDERED: METOCLOPRAMIDE HCL INJECTION 10 MG/2 ML VIAL ONE (22:55)
[2024-07-29] MEDS ORDERED: ACETAMINOPHEN INJECTION 100 ML ONE (22:56)
[2024-07-29] MEDS: ACETAMINOPHEN 1000 MG/100 ML BAG IVPB ONE (22:58)
[2024-07-29 23:02] LABS: ABSOLUTE IMMATURE GRANULOCYTES 0.03 x10^3/uL (0.0-0.031); BASOPHILS # 0.03 x10^3/uL (0.01-0.08); EOSINOPHIL % 2.4 % (0.8-7.0); EOSINOPHILS # 0.17 x10^3/uL (0.04-0.54); HEMATOCRIT 38.6 % (40.1-51.0); HEMOGLOBIN 13.2 g/dL (13.7-17.5); MCHC 34.2 g/dl (32.3-36.5); MEAN CELL VOLUME 91.3 fl (79.0-92.2); MEAN PLT VOLUME 11.1 fl (9.4-12.4); MONOCYTE # 0.56 x10^3/uL (0.30-0.82); PLATELET COUNT 219 x10^3/uL (163-337); RDW 11.7 % (12.6-16.6)
[2024-07-29 23:22] LABS: CHLORIDE 100 mmol/L (98-107); POTASSIUM 4.3 mmol/L (3.5-5.1); SODIUM 136 mmol/L (136-145)
[2024-07-29 23:24] LABS: CALCIUM 10.3 mg/dL (8.5-10.1)
[2024-07-29 23:25] LABS: ALBUMIN 4.1 g/dl (3.4-5.0); ANION GAP 8 mmol/L (4-13); BLOOD UREA NITROGEN 24.6 mg/dL (7-18); CO2 28 mmol/L (21-32); GLUCOSE,RANDOM 244 mg/dL (74-106); MAGNESIUM 1.7 mg/dL (1.8-2.4)
[2024-07-29 23:28] LABS: CREATININE 1.6 mg/dL (0.55-1.3); SGOT/AST 25 U/L (15-37); SGPT/ALT 25 U/L (13-61)
[2024-07-29] MEDS: METOCLOPRAMIDE HCL INJECTION 10 MG/2 ML VIAL IVPB ONE (23:28)
[2024-07-29 23:29] LABS: BILIRUBIN,TOTAL 0.4 mg/dL (0.2-1)
[2024-07-29 23:30] LABS: TOT PROT 7.5 g/dl (6.4-8.2)
[2024-07-29 23:31] LABS: ALK PHOS 58 U/L (45-117)
[2024-07-29] MEDS ORDERED: MAGNESIUM SULFATE IN WATER 2 GM/50 ML IVPB IVPB ONE (23:48)
[2024-07-29 23:53] LABS: ERYTHROCYTE SEDIMENTATION RATE 26 mm/hr (0-20)
[2024-07-30] MEDS: MAGNESIUM SULFATE IN WATER 2 GM/50 ML IVPB IVPB ONE (00:22)
[2024-07-30] MEDS ORDERED: VALPROATE SODIUM 500 MG/5 ML VIAL ONE (01:19)
[2024-07-30] MEDS: VALPROATE SODIUM 500 MG/5 ML VIAL IVPB ONE (01:47)
[2024-07-30] MEDS ORDERED: hydrALAZINE HCL 20 MG/ML VIAL IVPUSH PRN ×2 (02:05→03:16)
[2024-07-30] MEDS: ACETAMINOPHEN 1000 MG/100 ML BAG IVPB PRN (04:14)
[2024-07-30] MEDS ORDERED: HEPARIN NA (PORCINE) 5,000 UNITS/ML 1ML VIAL SQ SCH (06:00)
[2024-07-30] MEDS ORDERED: PANTOPRAZOLE 20 MG TABLET PO ONE (07:23)
[2024-07-30] MEDS: PANTOPRAZOLE 20 MG TABLET PO SCH (07:29)
[2024-07-30] MEDS ORDERED: INSULIN ASPART SLIDING SCALE (NOVOLOG) 1 VIAL SQ ONE ×3 (07:32→18:17)
[2024-07-30] MEDS: INSULIN ASPART SLIDING SCALE (NOVOLOG) 1 VIAL SQ SCH (07:35)
[2024-07-30] MEDS ORDERED: amLODIPine BESYLATE 5 MG TABLET (FP) ONE (09:33)
[2024-07-30] MEDS: FINASTERIDE 5 MG TABLET (FP) PO SCH (09:59)
[2024-07-30] MEDS: amLODIPine BESYLATE 5 MG TABLET (FP) PO SCH (09:59)
[2024-07-30] MEDS ORDERED: FUROSEMIDE 40 MG TABLET (FP) PO SCH (10:00)
[2024-07-30] MEDS ORDERED: PATIENT'S OWN MEDICATION (NON-FORMULARY) (Lisinopril/Hydrochlorothiazide [Lisinopril-Hctz PO SCH (10:00)
[2024-07-30 13:55] LABS: URINE APPEARANCE CLEAR; URINE BILIRUBIN NEGATIVE (NEGATIVE); URINE COLOR YELLOW; URINE GLUCOSE (UA) TRACE (NEGATIVE); URINE KETONE NEGATIVE (NEGATIVE); URINE LEUK ESTERASE NEGATIVE (NEGATIVE); URINE NITRITE NEGATIVE (NEGATIVE); URINE PROTEIN NEGATIVE (NEGATIVE); URINE UROBILINOGEN 0.2 mg/dL (0.2-1.0)
[2024-07-30] MEDS: SODIUM CHLORIDE 1,000 ML IV SCH (18:46)
[2024-07-30 20:36] VITALS: RESP 18
[2024-07-30] MEDS: ROSUVASTATIN CA 20 MG TABLET PO SCH (21:17)
[2024-07-31] MEDS: hydrALAZINE HCL 20 MG/ML VIAL IVPUSH ONE (21:46)
[2024-08-01] MEDS: amLODIPine BESYLATE 10 MG TABLET (FP) PO SCH (09:53)
[2024-08-01 11:07] VITALS: BMI 28.3
[2024-08-01] MEDS: POLYETHYLENE GLYCOL (HEALTHYLAX) 3350 17 GM PACKET PO SCH (11:41)
[2024-08-01 11:57] LABS: ABSOLUTE IMMATURE GRANULOCYTES 0.04 x10^3/uL (0.0-0.031); BASOPHILS # 0.04 x10^3/uL (0.01-0.08); EOSINOPHILS # 0.24 x10^3/uL (0.04-0.54); HEMATOCRIT 37.7 % (40.1-51.0); HEMOGLOBIN 12.5 g/dL (13.7-17.5); MCHC 33.2 g/dl (32.3-36.5); MEAN CELL VOLUME 91.5 fl (79.0-92.2); MEAN PLT VOLUME 10.8 fl (9.4-12.4); MONOCYTE # 0.71 x10^3/uL (0.30-0.82); MONOCYTE % 8.7 % (5.3-12.2); PLATELET COUNT 193 x10^3/uL (163-337)
[2024-08-01 12:20] LABS: POTASSIUM 4.3 mmol/L (3.5-5.1)
[2024-08-01 12:24] LABS: CREATININE 1.1 mg/dL (0.55-1.3)
[2024-08-02] MEDS: ASPIRIN 81 MG CHEWABLE TABLETS PO SCH (09:18)
[2024-08-02 18:38] VITALS: BP 148/66; PULSE 66; TEMP 97.3
== END 2024-08-02 19:50 | disposition home or self-care (01) ==
LOC: JER 22:24 → JERBED 23:34 → J4W 07-30 19:46
PROVIDERS: ADMIT Internal Medicine; ATTEND Internal Medicine
PROC: 3E033NZ Introduction of Analgesics, Hypnotics, Sedatives into Peripheral Vein, Percutaneous Approach (ICD-10-PCS; principal; 2024-07-29)
PROC: 3E033GC Introduction of Other Therapeutic Substance into Peripheral Vein, Percutaneous Approach (ICD-10-PCS; 2024-07-29)
PROC: 3E013VG Introduction of Insulin into Subcutaneous Tissue, Percutaneous Approach (ICD-10-PCS; 2024-07-29)
PROC: 3E0337Z Introduction of Electrolytic and Water Balance Substance into Peripheral Vein, Percutaneous Approach (ICD-10-PCS; 2024-07-29)
DX: N17.9 Acute kidney failure, unspecified (principal); I16.0 Hypertensive urgency; E11.9 Type 2 diabetes mellitus without complications; I10 Essential (primary) hypertension; E78.5 Hyperlipidemia, unspecified; I87.2 Venous insufficiency (chronic) (peripheral); N40.0 Benign prostatic hyperplasia without lower urinary tract symptoms; Z87.738 Personal history of other specified (corrected) congenital malformations of digestive system; Z86.73 Personal history of transient ischemic attack (TIA), and cerebral infarction without residual deficits
CPT/HCPCS: 0241U-QW; 36415; 70450-TC; 70496-TC; 70498-TC; 70551-TC; 71045-TC-FY; 76775-TC; 76856-TC; 80048; 80053; 81003; 82570; 82962; 83735; 84300; 84484; 85025; 85651; 86140; 93005; 93010; 96361; 96365; 96372; 96375; 96376; 97116-GP; 97161-GP; 99285-25; G0378